=== PATIENT | female | born 2000 | race Two or more races ===

== ENCOUNTER 2019-05-01 13:29 | Emergency (ER) | payer MEDICAID, OTHER ==
[~2019-05-01] VITALS: Ht 165.1 cm; Wt 76.2 kg
[2019-05-01 15:43] LABS: Urine Bacteria FEW /hpf (None Seen); Urine Blood Negative /uL (Negative); Urine Mucus FEW (None Seen); Urine Specific Gravity 1.028 (1.001-1.035); Urine WBC 2 /hpf (0 - 5)
[2019-05-01 16:12] LABS: Basophils # (auto) 0 uL; Basophils % (auto) 0.2 % (0.0-2.0); Eosinophils # (auto) 0.1 uL; Hemoglobin 12.5 g/dL (12.2-16.2); Monocytes # (auto) 0.9 uL
[2019-05-01 16:14] LABS: Eosinophils % (auto) 0.7 % (0.0-7.0); Hematocrit 37.4 % (36.0-46.0); Lymphocytes # (auto) 2.9 uL; Lymphocytes % (auto) 18.9 % (10.0-50.0); Mean Corpuscular Hemoglobin 27.6 pg (28.0-32.0); Mean Corpuscular Hgb Conc. 33.5 g/dL (32.0-36.0); Mean Corpuscular Volume 82.3 fL (80.0-100.0); Monocytes % (auto) 5.5 % (0.0-12.0); Neutrophils # (auto) 11.6 uL; Neutrophils % (auto) 74.7 % (37.0-80.0); Platelet Count (auto) 324 10^3/uL (140-450); Red Blood Cells 4.55 10^6/uL (4.0-5.20); Red Cell Distribution Width 15.5 % (11.8-14.3); White Blood Cell 15.6 10^3/uL (4.4-10.8)
[2019-05-01 16:23] LABS: Calcium 8.8 mg/dL (8.5-10.1); Potassium 4.3 mmol/L (3.5-5.1)
[2019-05-01 16:27] LABS: BUN/Creatinine Ratio 15.4; Bilirubin, Total 0.2 mg/dL (0.2-1.0); Total Protein 7.3 g/dL (6.4-8.2)
[2019-05-01 17:30] VITALS: BP 109/68
== END 2019-05-01 17:34 | disposition home or self-care (01) ==
LOC: ER 13:29
DX: O26.892 Other specified pregnancy related conditions, second trimester (principal); R42 Dizziness and giddiness; R55 Syncope and collapse; R06.02 Shortness of breath; Z3A.19 19 weeks gestation of pregnancy
CPT/HCPCS: 36415; 80053; 81001; 85025; 93005

== ENCOUNTER 2020-05-12 20:03 | Emergency (ER) | payer MEDICAID ==
[~2020-05-12] VITALS: Ht 165.1 cm; Wt 98.9 kg
[2020-05-12 23:10] VITALS: BP 114/82
[2020-05-13] MEDS ORDERED: IBUPROFEN 800 MG TAB PO ONE
== END 2020-05-13 01:23 | disposition home or self-care (01) ==
LOC: ER 20:08
DX: R51.9 Headache, unspecified (principal); F41.9 Anxiety disorder, unspecified; F33.2 Major depressive disorder, recurrent severe without psychotic features
CPT/HCPCS: 70450

== ENCOUNTER 2021-10-01 18:08 | Emergency (ER) | payer SELFPAY ==
[2021-10-01 21:31] LABS: Basophils # (auto) 0 10 ^3/uL (0-0.2); Basophils % (auto) 0.2 % (0.0-2.0); Eosinophils # (auto) 0.1 10 ^3/uL (0-0.8); Eosinophils % (auto) 0.6 % (0.0-7.0); Hemoglobin 13.5 g/dL (12.2-16.2); Lymphocytes # (auto) 5.3 10 ^3/uL (0.4-5.4); Mean Corpuscular Hgb Conc. 32.2 g/dL (32.0-36.0); Mean Corpuscular Volume 83.7 fL (80.0-100.0); Monocytes # (auto) 0.8 10 ^3/uL (0-1.3); Monocytes % (auto) 5.3 % (0.0-12.0); Neutrophils # (auto) 9.8 10 ^3/uL (1.6-8.6); Neutrophils % (auto) 60.9 % (37.0-80.0); Nucleated Red Blood Cells % 0.1 %; Red Blood Cells 5.02 10^6/uL (4.0-5.20); Red Cell Distribution Width 14.4 % (11.8-14.3)
[2021-10-01 21:42] LABS: Albumin 3.7 g/dL (3.4-5.0); Calcium 9.5 mg/dL (8.5-10.1); Potassium 4.3 mmol/L (3.5-5.1)
[2021-10-01 21:44] LABS: BUN/Creatinine Ratio 17.4
[2021-10-01 21:47] LABS: Bilirubin, Total 0.3 mg/dL (0.2-1.0); Total Protein 7.6 g/dL (6.4-8.2)
[2021-10-02 02:03] LABS: Urine Bacteria FEW /hpf (None Seen); Urine Blood Negative /uL (Negative); Urine Mucus FEW (None Seen); Urine Specific Gravity 1.022 (1.001-1.035); Urine WBC 7 /hpf (0 - 5)
[2021-10-02] MEDS ORDERED: PERCOT PO (03:08)
[2021-10-02] MEDS ORDERED: NITR-87 PO (03:08)
[2021-10-02] MEDS ORDERED: cefTRIAXone 1GM/50ML D5W 50 ML IV ONE (03:15)
[2021-10-02 03:20] VITALS: BP 125/65
== END 2021-10-02 03:27 | disposition home or self-care (01) ==
LOC: ER 18:08
DX: N39.0 Urinary tract infection, site not specified (principal)
CPT/HCPCS: 36415; 74176; 80053; 81001; 81025; 83690; 85025

== ENCOUNTER 2022-01-20 17:13 | Emergency (ER) | payer MEDICAID ==
[~2022-01-20] VITALS: Ht 162.6 cm; Wt 100.0 kg
[~2022-01-20 17:13] MED LIST: NITR-87 PO; PERCOT PO
[2022-01-20 17:57] VITALS: BP 122/81
[2022-01-20 18:47] LABS: Basophils # (auto) 0.1 10 ^3/uL (0-0.2); Basophils % (auto) 0.5 % (0.0-2.0); Eosinophils # (auto) 0.1 10 ^3/uL (0-0.8); Eosinophils % (auto) 0.4 % (0.0-7.0); Hematocrit 41.9 % (36.0-46.0); Hemoglobin 13.9 g/dL (12.2-16.2); Lymphocytes # (auto) 5.2 10 ^3/uL (0.4-5.4); Lymphocytes % (auto) 31.8 % (10.0-50.0); Mean Corpuscular Hemoglobin 27.2 pg (28.0-32.0); Mean Corpuscular Hgb Conc. 33.1 g/dL (32.0-36.0); Mean Corpuscular Volume 82.3 fL (80.0-100.0); Monocytes # (auto) 0.7 10 ^3/uL (0-1.3); Monocytes % (auto) 4.5 % (0.0-12.0); Neutrophils # (auto) 10.3 10 ^3/uL (1.6-8.6); Neutrophils % (auto) 62.8 % (37.0-80.0); Red Blood Cells 5.09 10^6/uL (4.0-5.20); Red Cell Distribution Width 14.1 % (11.8-14.3); White Blood Cell 16.3 10^3/uL (4.4-10.8)
[2022-01-20 19:10] LABS: Albumin 3.7 g/dL (3.4-5.0); Calcium 8.8 mg/dL (8.5-10.1)
[2022-01-20 19:13] LABS: Bilirubin, Total 0.2 mg/dL (0.2-1.0); Total Protein 7.1 g/dL (6.4-8.2)
[2022-01-20 19:36] LABS: Urine Bacteria NONE SEEN /hpf (None Seen); Urine Mucus FEW (None Seen); Urine WBC 1 /hpf (0 - 5)
[2022-01-20 19:39] LABS: Urine Specific Gravity 1.005 (1.001-1.035)
[2022-01-20 19:40] LABS: Urine Blood Normal /uL (Negative)
[2022-01-20] MEDS ORDERED: NITR-52 PO (20:58)
[2022-01-20] MEDS ORDERED: NITROFURANTOIN 100 mg CAP PO ONE (21:00)
== END 2022-01-20 21:16 | disposition home or self-care (01) ==
LOC: ER 17:13
DX: N39.0 Urinary tract infection, site not specified (principal); Z32.02 Encounter for pregnancy test, result negative
CPT/HCPCS: 36415; 74018; 76700; 80053; 81001; 81025; 85025

== ENCOUNTER 2022-11-16 18:14 | Emergency (ER) | payer MEDICAID ==
[~2022-11-16] VITALS: Ht 165.1 cm; Wt 97.7 kg
[~2022-11-16 18:14] MED LIST changes: +NITR-52 PO
[2022-11-16 19:04] LABS: Basophils # (auto) 0 10 ^3/uL (0-0.2); Basophils % (auto) 0.3 % (0.0-2.0); Eosinophils # (auto) 0.1 10 ^3/uL (0-0.8); Eosinophils % (auto) 0.7 % (0.0-7.0); Hematocrit 40.5 % (36.0-46.0); Hemoglobin 13.3 g/dL (12.2-16.2); Lymphocytes % (auto) 34.1 % (10.0-50.0); Mean Corpuscular Hemoglobin 27.2 pg (28.0-32.0); Mean Corpuscular Hgb Conc. 32.8 g/dL (32.0-36.0); Mean Corpuscular Volume 83.1 fL (80.0-100.0); Monocytes # (auto) 0.9 10 ^3/uL (0-1.3); Monocytes % (auto) 5.9 % (0.0-12.0); Neutrophils # (auto) 8.6 10 ^3/uL (1.6-8.6); Red Blood Cells 4.87 10^6/uL (4.0-5.20); Red Cell Distribution Width 14.2 % (11.8-14.3); White Blood Cell 14.5 10^3/uL (4.4-10.8)
[2022-11-16 19:26] LABS: Alanine Aminotransferase 16 U/L (7-40); Albumin 4.5 g/dL (3.2-4.8); Alkaline Phosphatase 68 U/L (46-116); Anion Gap 6.5 (5-15); Aspartate Aminotransferase 12 U/L (13-40); BUN/Creatinine Ratio 12.8 (10.0-20.0); Bilirubin, Total 0.2 mg/dL (0.2-1.0); Blood Urea Nitrogen 10 mg/dL (9-23); Calcium 9.2 mg/dL (8.5-10.1); Carbon Dioxide 24.5 mmol/L (20-30); Chloride 107 mmol/L (98-107); Glucose 109 mg/dL (74-106); Lipase 57 U/L (12-53); Potassium 3.7 mmol/L (3.5-5.1); Sodium 138 mmol/L (136-145); Total Protein 7.1 g/dL (5.7-8.2)
[2022-11-16 19:49] LABS: Urine Bacteria FEW /hpf (None Seen); Urine Blood Negative /uL (Negative); Urine Clarity Clear (Clear); Urine Color Yellow (Yellow); Urine Hyaline Cast FEW /lpf (0 - 2); Urine Mucus FEW (None Seen); Urine Protein, UAD TRACE (Negative); Urine Specific Gravity 1.029 (1.001-1.035); Urine WBC 1 /hpf (0 - 5)
[2022-11-16] MEDS ORDERED: SODIUM CHLORIDE 0.9% 1,000 ML IV ONE (22:00)
[2022-11-16] MEDS ORDERED: metroNIDAZOLE 500 MG TAB PO ONE (22:00)
[2022-11-16] MEDS ORDERED: ONDANSETRON HCL 4 MG/2 ML VIAL IV ONE (22:00)
[2022-11-16] MEDS ORDERED: FAMOTIDINE (10MG/ML) 2ML VL IV ONE (22:00)
[2022-11-16] MEDS ORDERED: CIPROFLOXACIN HCL 500 MG TAB PO ONE (22:00)
[2022-11-16] MEDS ORDERED: DICYCLOMINE HCL (10MG/ML) 2 ML AMPULE IM ONE (22:00)
[2022-11-16] MEDS ORDERED: ZOFR4T PO (22:01)
[2022-11-16] MEDS ORDERED: POLY335015 PO (22:01)
[2022-11-16] MEDS ORDERED: DICY10CA PO (22:01)
[2022-11-16] MEDS ORDERED: BISA10SU45 RE (22:01)
[2022-11-16] MEDS ORDERED: FAMO20TA10 PO (22:01)
[2022-11-16 22:25] VITALS: BP 121/88; PULSE 71; RESP 18; O2SAT 99
== END 2022-11-16 22:27 | disposition home or self-care (01) ==
LOC: ER 18:14
DX: K29.70 Gastritis, unspecified, without bleeding (principal); K59.00 Constipation, unspecified; K65.4 Sclerosing mesenteritis; Z32.02 Encounter for pregnancy test, result negative; Z88.1 Allergy status to other antibiotic agents
CPT/HCPCS: 36415; 74176; 80053; 81001; 81025; 83690; 85025; 99284; J3490